=== PATIENT | male | born 1955 | race Caucasian/White ===

== ENCOUNTER 2018-02-09 05:48 | Day surgery (SDC) | payer BC, MEDICAID, SELFPAY ==
[2018-02-09] MEDS ORDERED: Dextrose 5%-Lactated Ringers 1,000 ML IV SCH (06:30)
[2018-02-09] MEDS ORDERED: Glycopyrrolate 0.2 MG/ML 2 ML SDV IVPUSH ONE (07:15)
[2018-02-09] MEDS ORDERED: Midazolam 1 MG/ML 2 ML SDV ONE (07:18)
[2018-02-09] MEDS ORDERED: Propofol 200 MG/20 ML SDV ONE (07:18)
[2018-02-09] MEDS ORDERED: fentaNYL 100 MCG/2 ML SDV ONE (07:18)
[2018-02-09 10:13] VITALS: BP 115/83
--- NOTE | 2018-02-13 12:22 | OR ---
DATE OF PROCEDURE: 02/09/2018 PREOPERATIVE DIAGNOSIS: Dysphagia referable to cervical esophagus. POSTOPERATIVE DIAGNOSES: Dysphagia referable to cervical esophagus associated with: 1. Reddened hypopharynx and larynx. 2. Large hiatal hernia with ulcerated gastroesophageal reflux disease. 3. Mild antral gastritis and duodenitis. OPERATIVE PROCEDURES: Esophagogastroduodenoscopy with: 1. Biopsies of esophagogastric junction for histologic evaluation. 2. Biopsies of antrum for CLOtest. ANESTHESIA: IV sedation. INDICATION FOR PROCEDURE: This is a 62-year-old with longstanding history of gastroesophageal reflux disease, presently being managed with omeprazole 20 mg a day. The plan is to proceed with upper GI endoscopy with biopsies and/or dilation as indicated. Potential risks including bleeding and perforation were discussed, and the patient wishes to proceed. DETAILS OF PROCEDURE: The patient was taken to the operating room and placed in a left lateral decubitus position. IV sedation was administered, after which the upper GI endoscope was passed orally through the length of the esophagus and into the stomach with retroflexion view of the fundus, and thereafter through the pyloric channel and into the proximal duodenum. Findings included quite a bit of reddening and some edema of the hypopharynx and larynx. There were no focal mucosal abnormalities and no obstructive lesions within the upper esophageal sphincter and esophageal body, and no abnormalities were noted. As one approached the EG junction, the patient was noted to have a quite large hiatal hernia measuring around 4 to 5 cm and had active ulcerated gastroesophageal reflux disease at the EG junction. There was no stricturing or gross evidence of neoplasia. Within the stomach, retroflexion confirmed a large hiatal hernia and apart from that, there was mild redness and friability of the antral and proximal duodenal mucosa. Beyond the duodenal bulb, the findings normalized. At this point, biopsies were obtained from the antrum and sent for CLOtest for H. pylori. Multiple biopsies were then obtained from the area of esophagogastric junction and sent for histologic evaluation. Minimal bleeding from the biopsy sites was seen, and the procedure was then concluded. At this point, we will have the patient move his omeprazole dose up to a more full range dose, that being 40 mg a day. We will see him back on 02/22/2018 to discuss treatment options. In all likelihood, his dysphagia symptoms are related to gastroesophageal reflux disease. Luis Mccormick MD /[id number]
== END 2018-02-09 10:24 | disposition home or self-care (01) ==
LOC: JP.SDS 05:48
PROVIDERS: ATTEND Surgery
DX: K21.0 Gastro-esophageal reflux disease with esophagitis (principal); K31.89 Other diseases of stomach and duodenum; K44.9 Diaphragmatic hernia without obstruction or gangrene; I10 Essential (primary) hypertension; E03.9 Hypothyroidism, unspecified; Z88.8 Allergy status to other drugs, medicaments and biological substances
CPT/HCPCS: 43239; 87081; J2250; J2704; J3010; J7042; 88305; J3490